=== PATIENT | female | born 1945 | race Caucasian/White ===

== ENCOUNTER 2021-12-05 01:45 | Inpatient (IN) ==
[2021-12-05] MEDS ORDERED: Melatonin 3 MG TABLET PO PRN (05:12)
[2021-12-05] MEDS ORDERED: Naloxone 0.4 MG/ML INJ IVP PRN (05:12)
[2021-12-05] MEDS: *HR* Labetalol 20 MG/4 ML SYRINGE IVP ONE ×2 (05:51→05:57)
[2021-12-05] MEDS ORDERED: Ipratropium/Albuterol Neb 3 ML ONE (07:20)
[2021-12-05] MEDS: Budesonide/Formoterol 160/4.5 1 PUFF INH IH SCH ×2 (07:34→19:51)
[2021-12-05] MEDS: hydroCHLOROthiazide 25 MG TABLET PO SCH (08:00)
[2021-12-05] MEDS ORDERED: Ipratropium/Albuterol Neb 3 ML IH SCH (10:00)
[2021-12-05] MEDS: Ipratropium/Albuterol Neb 3 ML IH SCH ×6 (11:23→22:49)
[2021-12-05] MEDS: MethylPREDNISolone 40 MG/ML VIAL IVP SCH ×2 (12:38→20:39)
[2021-12-05] MEDS ORDERED: *HR* Labetalol 20 MG/4 ML SYRINGE IVP PRN (16:55)
[2021-12-05] MEDS: *HR* Heparin 5,000 UNIT/ML VIAL SQ SCH (17:47)
[2021-12-05] MEDS: ALPRAZolam 0.5 MG TABLET PO PRN (20:32)
[2021-12-05] MEDS ORDERED: *HR* LORazepam 2 MG/ML VIAL IVP ONE (22:28)
[2021-12-06 00:44] LABS: ABG Base Excess 18 mEq/L (-2 to 3); ABG HCO3 48 mEq/L (21-27); ABG Oxygen Saturation 97 % (95-98); ABG PCO2 88 mmHg (35-45); ABG PH 7.35 pH Units (7.32-7.45); ABG PO2 108 mmHg (85-104); ABG TCO2 > 50 mEq/L (20-26)
[2021-12-06] MEDS ORDERED: Haloperidol Lactate 5 MG/ML VIAL IVP PRN ×2 (02:09→13:33)
[2021-12-06] MEDS: Ipratropium/Albuterol Neb 3 ML IH SCH ×3 (03:40→10:34)
[2021-12-06] MEDS: MethylPREDNISolone 40 MG/ML VIAL IVP SCH ×3 (04:03→21:26)
[2021-12-06 05:26] LABS: Hematocrit 34.2 % (35.3-44.9); Hemoglobin 11.1 g/dL (11.5-15.4); Mean Corpuscular HGB Conc 32.5 g/dL (31.6-35.5); Mean Corpuscular Hemoglobin 30.8 pg (28.0-33.3); Mean Platelet Volume 10.7 fL (9.4-12.4); Platelet Count 302 K/mcL (140-400); Red Cell Distribution Width 12.5 % (11.5-14.5)
[2021-12-06 05:49] LABS: BUN/Creatinine Ratio 30 (6-26); Blood Urea Nitrogen 23 mg/dL (8-23); Calcium 9.1 mg/dL (8.6-10.3); Carbon Dioxide 44 mEq/L (23-29); Chloride 86 mEq/L (98-107); Glucose 227 mg/dL (70-105); Magnesium 1.6 mg/dL (1.6-2.6); Osmolality,Calculated 293 (280-300); Potassium 3.4 mEq/L (3.5-5.1); Sodium 136 mEq/L (136-145); eGFR For African Americans > 60 (> 60); eGFR For Non-African Americans > 60 (> 60)
[2021-12-06] MEDS: Budesonide/Formoterol 160/4.5 1 PUFF INH IH SCH ×2 (07:17→19:46)
[2021-12-06] MEDS: *HR* Heparin 5,000 UNIT/ML VIAL SQ SCH ×2 (08:39→18:31)
[2021-12-06] MEDS: hydroCHLOROthiazide 25 MG TABLET PO SCH (08:56)
[2021-12-06] MEDS: ALPRAZolam 0.5 MG TABLET PO PRN (08:56)
[2021-12-06 14:42] LABS: ABG Base Excess 17 mEq/L (-2 to 3); ABG HCO3 45 mEq/L (21-27); ABG Oxygen Saturation 94 % (95-98); ABG PCO2 67 mmHg (35-45); ABG PH 7.44 pH Units (7.32-7.45); ABG PO2 74 mmHg (85-104); ABG TCO2 47 mEq/L (20-26)
[2021-12-06] MEDS ORDERED: Acetaminophen 325 MG TABLET PO PRN (14:45)
[2021-12-06] MEDS ORDERED: Ipratropium/Albuterol Neb 3 ML IH PRN (15:37)
[2021-12-07 01:39] LABS: Hematocrit 33.3 % (35.3-44.9); Hemoglobin 10.6 g/dL (11.5-15.4); Mean Corpuscular HGB Conc 31.8 g/dL (31.6-35.5); Mean Corpuscular Hemoglobin 30.4 pg (28.0-33.3); Mean Corpuscular Volume 95.4 fL (83.0-100.0); Mean Platelet Volume 10.3 fL (9.4-12.4); Platelet Count 299 K/mcL (140-400); Red Blood Count 3.49 M/mcL (3.82-4.97); Red Cell Distribution Width 12.7 % (11.5-14.5)
[2021-12-07 01:56] LABS: BUN/Creatinine Ratio 38 (6-26); Blood Urea Nitrogen 28 mg/dL (8-23); Calcium 8.7 mg/dL (8.6-10.3); Carbon Dioxide 44 mEq/L (23-29); Chloride 89 mEq/L (98-107); Glucose 230 mg/dL (70-105); Magnesium 1.7 mg/dL (1.6-2.6); Osmolality,Calculated 297 (280-300); Potassium 3.9 mEq/L (3.5-5.1); Sodium 137 mEq/L (136-145); eGFR For African Americans > 60 (> 60); eGFR For Non-African Americans > 60 (> 60)
[2021-12-07] MEDS: MethylPREDNISolone 40 MG/ML VIAL IVP SCH ×2 (03:42→13:20)
[2021-12-07] MEDS: *HR* Heparin 5,000 UNIT/ML VIAL SQ SCH (06:06)
[2021-12-07] MEDS ORDERED: lisinopriL 5 MG TABLET PO SCH (09:00)
[2021-12-07 10:31] VITALS: TEMP 97.9
[2021-12-07] MEDS: Budesonide/Formoterol 160/4.5 1 PUFF INH IH SCH ×2 (10:58→11:37)
[2021-12-07 16:29] VITALS: BP 150/79; PULSE 100; O2SAT 96
== END 2021-12-07 16:59 | disposition home or self-care (01) | DRG 189 ==
LOC: 2NENU
PROVIDERS: ADMIT Internal Medicine; ATTEND Internal Medicine

== ENCOUNTER 2021-12-23 14:27 | Inpatient (IN) ==
[2021-12-23] MEDS ORDERED: Isovue-370 500 ML BOTTLE IVP ONE (14:54)
[2021-12-23] MEDS ORDERED: methylPREDNISolone 125 MG/2 ML VIAL IVP ONE (15:36)
[2021-12-23] MEDS ORDERED: Azithromycin 500 MG in 0.9 % Sodium Chloride 250 ML IVPB ONE (15:36)
[2021-12-23 15:37] LABS: VBG HCO3 50 mEq/L (21-27); VBG PCO2 107 mmHg (41-51); VBG PH 7.28 pH Units (7.32-7.42); VBG PO2 53 mmHg (25-50)
[2021-12-23] MEDS ORDERED: Ipratropium/Albuterol Neb 3 ML IH ONE ×2 (15:45→17:01)
[2021-12-23] MEDS ORDERED: *HR* LORazepam 2 MG/ML VIAL IVP ONE (16:00)
[2021-12-23 16:01] LABS: BUN/Creatinine Ratio 28 (6-26); Blood Urea Nitrogen 21 mg/dL (8-23); Calcium 9.1 mg/dL (8.6-10.3); Carbon Dioxide > 45 mEq/L (23-29); Chloride 88 mEq/L (98-107); Glucose 290 mg/dL (70-105); Magnesium 1.7 mg/dL (1.6-2.6); Osmolality,Calculated 306 (280-300); Potassium 3.7 mEq/L (3.5-5.1); Sodium 141 mEq/L (136-145); Troponin I < 0.03 ng/mL (< 0.04); eGFR For African Americans > 60 (> 60); eGFR For Non-African Americans > 60 (> 60)
[2021-12-23 17:36] LABS: Basophils % 0.3 %; Eosinophils # 0.1 K/mcL (0.0-0.6); Eosinophils % 1.8 %; Hemoglobin 10.5 g/dL (11.5-15.4); Immature Granulocytes % 0.4 % (0-4); Mean Corpuscular Hemoglobin 30.8 pg (28.0-33.3); Mean Corpuscular Volume 102.6 fL (83.0-100.0); Mean Platelet Volume 10.2 fL (9.4-12.4); Monocytes # 0.7 K/mcL (0.0-1.3); Monocytes % 9.2 %; Platelet Count 242 K/mcL (140-400); Red Blood Count 3.41 M/mcL (3.82-4.97); Red Cell Distribution Width 12.9 % (11.5-14.5); Segmented Neutrophils % 75.3 %; White Blood Count 7.9 K/mcL (4.3-11.1)
[2021-12-23 17:41] LABS: VBG HCO3 44 mEq/L (21-27); VBG PCO2 75 mmHg (41-51); VBG PH 7.38 pH Units (7.32-7.42); VBG PO2 175 mmHg (25-50)
[2021-12-23] MEDS ORDERED: Naloxone 0.4 MG/ML INJ IVP PRN (18:41)
[2021-12-23] MEDS ORDERED: Melatonin 3 MG TABLET PO PRN (18:41)
[2021-12-23] MEDS ORDERED: ALPRAZolam 0.5 MG TABLET PO PRN (18:49)
[2021-12-23] MEDS ORDERED: Perflutren Lipid Microsphere 1.3 ML in 0.9 % Sodium Chloride 8.7 ML IVP PRN (19:04)
[2021-12-23] MEDS: Ipratropium/Albuterol Neb 3 ML IH SCH (20:49)
[2021-12-23] MEDS ORDERED: Budesonide/Formoterol 160/4.5 1 PUFF INH IH SCH (22:00)
[2021-12-24] MEDS: Ipratropium/Albuterol Neb 3 ML IH SCH ×4 (04:25→20:28)
[2021-12-24] MEDS: *HR* Heparin 5,000 UNIT/ML VIAL SQ SCH ×2 (05:48→17:07)
[2021-12-24 06:32] LABS: Basophils % 0.1 %; Hemoglobin 10.3 g/dL (11.5-15.4); Immature Granulocytes % 0.7 % (0-4); Mean Corpuscular HGB Conc 32.2 g/dL (31.6-35.5); Mean Corpuscular Hemoglobin 31.5 pg (28.0-33.3); Mean Corpuscular Volume 97.9 fL (83.0-100.0); Mean Platelet Volume 10.1 fL (9.4-12.4); Monocytes # 0.5 K/mcL (0.0-1.3); Monocytes % 6.1 %; Neutrophils # 6.1 K/mcL (1.6-8.9); Platelet Count 266 K/mcL (140-400); Red Blood Count 3.27 M/mcL (3.82-4.97); Red Cell Distribution Width 12.9 % (11.5-14.5); Segmented Neutrophils % 80.1 %; White Blood Count 7.6 K/mcL (4.3-11.1)
[2021-12-24 07:05] LABS: Alanine Aminotransferase 13 Units/L (7-52); Albumin 3.7 g/dL (3.5-5.7); Albumin/Globulin Ratio 1.6 (1.1-2.2); Alkaline Phosphatase 64 Units/L (34-104); Aspartate Amino Transferase 11 Units/L (13-39); BUN/Creatinine Ratio 40 (6-26); Bilirubin,Total 0.5 mg/dL (0.3-1.0); Blood Urea Nitrogen 27 mg/dL (8-23); Calcium 9.1 mg/dL (8.6-10.3); Carbon Dioxide 42 mEq/L (23-29); Chloride 91 mEq/L (98-107); Globulin 2.3 g/dL (2.4-3.5); Glucose 218 mg/dL (70-105); Magnesium 1.7 mg/dL (1.6-2.6); Osmolality,Calculated 302 (280-300); Phosphorous 2.5 mg/dL (2.7-4.5); Potassium 3.8 mEq/L (3.5-5.1); Sodium 140 mEq/L (136-145); Troponin I < 0.03 ng/mL (< 0.04); eGFR For African Americans > 60 (> 60); eGFR For Non-African Americans > 60 (> 60)
[2021-12-24] MEDS ORDERED: Albuterol 2.5 MG/3 ML NEBULIZER IH PRN (07:49)
[2021-12-24] MEDS ORDERED: MethylPREDNISolone 40 MG/ML VIAL IVP SCH (08:00)
[2021-12-24] MEDS: Budesonide/Formoterol 160/4.5 1 PUFF INH IH SCH ×2 (08:52→20:29)
[2021-12-24] MEDS: lisinopriL 5 MG TABLET PO SCH (10:06)
[2021-12-24] MEDS: ALPRAZolam 0.5 MG TABLET PO PRN ×2 (10:06→22:03)
[2021-12-24] MEDS: Cholecalciferol (D-3) 1,000 UNIT (25MCG) TABLET PO SCH (10:06)
[2021-12-24] MEDS: Fluticasone Propionate Nasal 50 MCG/SPRAY BOTTLE NS SCH (10:08)
[2021-12-24] MEDS: hydroCHLOROthiazide 25 MG TABLET PO SCH (10:08)
[2021-12-24] MEDS ORDERED: *HR* Dextrose 50 % in Water (Syg) 50 ML SYRINGE IVP PRN (12:57)
[2021-12-24] MEDS ORDERED: Dextrose 4 GM Chewable Tablets PO PRN ×2 (12:57)
[2021-12-24] MEDS ORDERED: D5% in Water 1,000 ML IVC PRN (12:57)
[2021-12-24] MEDS: Insulin LISPRO 300 UNITS/3 ML VIAL SUBQ SCH (16:57)
[2021-12-24] MEDS: MethylPREDNISolone 40 MG/ML VIAL IVP SCH (22:03)
[2021-12-25] MEDS: Ipratropium/Albuterol Neb 3 ML IH SCH ×4 (04:27→19:53)
[2021-12-25 05:13] LABS: Hematocrit 33.2 % (35.3-44.9); Hemoglobin 10.6 g/dL (11.5-15.4); Mean Corpuscular HGB Conc 31.9 g/dL (31.6-35.5); Mean Corpuscular Hemoglobin 31.8 pg (28.0-33.3); Mean Corpuscular Volume 99.7 fL (83.0-100.0); Mean Platelet Volume 10.3 fL (9.4-12.4); Platelet Count 283 K/mcL (140-400); Red Blood Count 3.33 M/mcL (3.82-4.97); Red Cell Distribution Width 12.9 % (11.5-14.5); White Blood Count 7.2 K/mcL (4.3-11.1)
[2021-12-25 05:35] LABS: BUN/Creatinine Ratio 42 (6-26); Blood Urea Nitrogen 35 mg/dL (8-23); Calcium 9.1 mg/dL (8.6-10.3); Carbon Dioxide 42 mEq/L (23-29); Chloride 91 mEq/L (98-107); Glucose 299 mg/dL (70-105); Osmolality,Calculated 305 (280-300); Potassium 4.3 mEq/L (3.5-5.1); Sodium 138 mEq/L (136-145); eGFR For African Americans > 60 (> 60); eGFR For Non-African Americans > 60 (> 60)
[2021-12-25] MEDS: Insulin LISPRO 300 UNITS/3 ML VIAL SUBQ SCH ×3 (08:11→17:47)
[2021-12-25] MEDS: hydroCHLOROthiazide 25 MG TABLET PO SCH (08:13)
[2021-12-25] MEDS: *HR* Heparin 5,000 UNIT/ML VIAL SQ SCH ×2 (08:14→17:51)
[2021-12-25] MEDS: Fluticasone Propionate Nasal 50 MCG/SPRAY BOTTLE NS SCH (08:14)
[2021-12-25] MEDS: MethylPREDNISolone 40 MG/ML VIAL IVP SCH ×2 (08:15→22:19)
[2021-12-25] MEDS: Cholecalciferol (D-3) 1,000 UNIT (25MCG) TABLET PO SCH (08:15)
[2021-12-25] MEDS: lisinopriL 5 MG TABLET PO SCH (08:15)
[2021-12-25] MEDS: Budesonide/Formoterol 160/4.5 1 PUFF INH IH SCH ×2 (09:57→19:53)
[2021-12-25] MEDS ORDERED: DilTIAZem CD (24hr) 120 MG CAP.ER.24H PO SCH (13:30)
[2021-12-25] MEDS: ALPRAZolam 0.5 MG TABLET PO PRN (22:16)
[2021-12-25] MEDS: Insulin DETEMIR 100 UNIT/ML X5UNITS SUBQ SCH (22:17)
[2021-12-26 03:19] LABS: Estimated Average Glucose 194 mg/dl; Hemoglobin A1C 8.4 %
[2021-12-26] MEDS: Ipratropium/Albuterol Neb 3 ML IH SCH ×4 (04:08→20:54)
[2021-12-26] MEDS: *HR* Heparin 5,000 UNIT/ML VIAL SQ SCH ×2 (06:43→16:26)
[2021-12-26] MEDS: Budesonide/Formoterol 160/4.5 1 PUFF INH IH SCH ×2 (08:07→20:54)
[2021-12-26] MEDS: Cholecalciferol (D-3) 1,000 UNIT (25MCG) TABLET PO SCH (09:14)
[2021-12-26] MEDS: Fluticasone Propionate Nasal 50 MCG/SPRAY BOTTLE NS SCH (09:14)
[2021-12-26] MEDS: DilTIAZem CD (24hr) 180 MG CAP.ER.24H PO SCH (09:15)
[2021-12-26] MEDS: hydroCHLOROthiazide 25 MG TABLET PO SCH (09:15)
[2021-12-26] MEDS: ALPRAZolam 0.5 MG TABLET PO PRN ×2 (09:15→20:32)
[2021-12-26] MEDS: lisinopriL 5 MG TABLET PO SCH (09:16)
[2021-12-26] MEDS: Insulin LISPRO 300 UNITS/3 ML VIAL SUBQ SCH ×3 (09:16→16:26)
[2021-12-26] MEDS: MethylPREDNISolone 40 MG/ML VIAL IVP SCH (09:16)
[2021-12-26] MEDS: Insulin DETEMIR 100 UNIT/ML X5UNITS SUBQ SCH (20:32)
[2021-12-27] MEDS: Ipratropium/Albuterol Neb 3 ML IH SCH ×2 (04:48→11:00)
[2021-12-27] MEDS: *HR* Heparin 5,000 UNIT/ML VIAL SQ SCH (06:48)
[2021-12-27] MEDS: DilTIAZem CD (24hr) 180 MG CAP.ER.24H PO SCH (08:35)
[2021-12-27] MEDS: hydroCHLOROthiazide 25 MG TABLET PO SCH (08:36)
[2021-12-27] MEDS: ALPRAZolam 0.5 MG TABLET PO PRN (08:36)
[2021-12-27] MEDS: Fluticasone Propionate Nasal 50 MCG/SPRAY BOTTLE NS SCH (08:36)
[2021-12-27] MEDS: lisinopriL 5 MG TABLET PO SCH (08:36)
[2021-12-27] MEDS: Insulin LISPRO 300 UNITS/3 ML VIAL SUBQ SCH ×2 (08:37→12:41)
[2021-12-27] MEDS: Cholecalciferol (D-3) 1,000 UNIT (25MCG) TABLET PO SCH (08:37)
[2021-12-27] MEDS ORDERED: predniSONE 20 MG TABLET PO SCH (09:00)
[2021-12-27] MEDS: Budesonide/Formoterol 160/4.5 1 PUFF INH IH SCH (11:00)
[2021-12-27 11:43] VITALS: BP 110/56; PULSE 89; TEMP 97.6; O2SAT 95
== END 2021-12-27 16:20 | disposition home or self-care (01) | DRG 189 ==
LOC: EMEROOARM 14:27 → 2NENU 14:27
PROVIDERS: ADMIT Internal Medicine; ATTEND Internal Medicine

== ENCOUNTER 2022-01-18 17:35 | Inpatient (IN) ==
[2022-01-18] MEDS ORDERED: Acetaminophen 325 MG TABLET PO PRN (19:42)
[2022-01-18] MEDS ORDERED: Naloxone 0.4 MG/ML INJ IVP PRN (19:42)
[2022-01-18] MEDS ORDERED: Ondansetron ODT 4 MG TAB.RAPDIS SL PRN (19:42)
[2022-01-18] MEDS ORDERED: Ipratropium/Albuterol Neb 3 ML IH PRN (19:47)
[2022-01-18] MEDS ORDERED: D5% in Water 1,000 ML IVC PRN (20:02)
[2022-01-18] MEDS ORDERED: Dextrose 4 GM Chewable Tablets PO PRN ×2 (20:02)
[2022-01-18] MEDS ORDERED: *HR* Dextrose 50 % in Water (Syg) 50 ML SYRINGE IVP PRN (20:02)
[2022-01-18] MEDS: Insulin LISPRO 300 UNITS/3 ML VIAL SUBQ SCH (20:30)
[2022-01-18] MEDS: Budesonide/Formoterol 160/4.5 1 PUFF INH IH SCH (21:00)
[2022-01-18 21:17] LABS: Hematocrit 30.6 % (35.3-44.9); Hemoglobin 9.6 g/dL (11.5-15.4)
[2022-01-18 21:25] LABS: VBG HCO3 45 mEq/L (21-27); VBG PCO2 79 mmHg (41-51); VBG PH 7.37 pH Units (7.32-7.42); VBG PO2 137 mmHg (25-50)
[2022-01-18 23:03] LABS: Estimated Average Glucose 197 mg/dl; Hemoglobin A1C 8.5 %
[2022-01-18] MEDS ORDERED: ALPRAZolam 0.5 MG TABLET PO PRN (23:16)
[2022-01-19] MEDS: Melatonin 3 MG TABLET PO PRN ×2 (00:27→22:15)
[2022-01-19] MEDS ORDERED: *HR* LORazepam 2 MG/ML VIAL IVP ONE (00:43)
[2022-01-19] MEDS ORDERED: Albumin 25% 25gram/100mL 25 GM/100 ML IV.SOLN ONE (00:59)
[2022-01-19] MEDS: Chlorhexidine Rinse 15 ML MOUTHWASH MM SCH ×3 (01:01→22:14)
[2022-01-19] MEDS: Albumin 25% 25gram/100mL 25 GM/100 ML IV.SOLN IVPB SCH (01:02)
[2022-01-19] MEDS: Furosemide 20 MG/2 ML VIAL IVP SCH ×3 (03:08→22:14)
[2022-01-19 04:13] LABS: Basophils % 0.1 %; Eosinophils # 0.1 K/mcL (0.0-0.6); Eosinophils % 0.9 %; Hematocrit 30.8 % (35.3-44.9); Hemoglobin 9.5 g/dL (11.5-15.4); Immature Granulocytes % 0.3 % (0-4); Lymphocytes # 1.4 K/mcL (0.6-4.6); Lymphocytes % 20.6 %; Mean Corpuscular HGB Conc 30.8 g/dL (31.6-35.5); Mean Corpuscular Hemoglobin 30.7 pg (28.0-33.3); Mean Corpuscular Volume 99.7 fL (83.0-100.0); Mean Platelet Volume 10.4 fL (9.4-12.4); Monocytes % 14.9 %; Neutrophils # 4.3 K/mcL (1.6-8.9); Platelet Count 278 K/mcL (140-400); Red Blood Count 3.09 M/mcL (3.82-4.97); Segmented Neutrophils % 63.2 %; White Blood Count 6.9 K/mcL (4.3-11.1)
[2022-01-19 04:16] LABS: Prothrombin Time 11.3 Seconds (9.4-12.1)
[2022-01-19 04:19] LABS: Activated Partial Thrombo Time 30.6 Seconds (26.0-36.0)
[2022-01-19 04:26] LABS: BUN/Creatinine Ratio 36 (6-26); Blood Urea Nitrogen 27 mg/dL (8-23); Calcium 8.9 mg/dL (8.6-10.3); Carbon Dioxide > 45 mEq/L (23-29); Chloride 88 mEq/L (98-107); Chol/HDL Ratio 2.5 (0-4.9); Cholesterol 149 mg/dL (< 200); Glucose 124 mg/dL (70-105); HDL Cholesterol 59 mg/dL (40-59); LDL Cholesterol,Calculated 64 mg/dL (< 100); Magnesium 1.8 mg/dL (1.6-2.6); Osmolality,Calculated 301 (280-300); Phosphorous 3.7 mg/dL (2.7-4.5); Potassium 3.4 mEq/L (3.5-5.1); Sodium 142 mEq/L (136-145); Triglycerides 128 mg/dL (< 150); eGFR For African Americans > 60 (> 60); eGFR For Non-African Americans > 60 (> 60)
[2022-01-19 07:13] LABS: Adenovirus Not Detected (Not Detect); Bordetella Pertussis Not Detected (Not Detect); Chlamydophila pneumoniae Not Detected (Not Detect); Coronavirus 229E Not Detected (Not Detect); Coronavirus HKU1 Not Detected (Not Detect); Coronavirus NL63 Not Detected (Not Detect); Coronavirus OC43 Not Detected (Not Detect); Human Metapneumovirus Not Detected (Not Detect); Human Rhinovirus/Enterovirus Not Detected (Not Detect); Influenza A Subtype 2009 H1 Not Detected (Not Detect); Influenza B Not Detected (Not Detect); Mycoplasma pneumoniae Not Detected (Not Detect); Parainfluenza Virus 1 Not Detected (Not Detect); Parainfluenza Virus 2 Not Detected (Not Detect); Parainfluenza Virus 3 Not Detected (Not Detect); Parainfluenza Virus 4 Not Detected (Not Detect); Respiratory Syncytial Virus Not Detected (Not Detect); SARS-CoV-2 Not Detected (Not Detect)
[2022-01-19] MEDS: Budesonide/Formoterol 160/4.5 1 PUFF INH IH SCH ×2 (07:43→20:20)
[2022-01-19] MEDS: Insulin LISPRO 300 UNITS/3 ML VIAL SUBQ SCH ×3 (09:46→18:21)
[2022-01-19] MEDS: Metoprolol XL (24 HR) Succ 25 MG TAB.ER.24H PO SCH (15:06)
[2022-01-19] MEDS: QUEtiapine Fumarate 25 MG TABLET PO SCH (22:15)
[2022-01-20] MEDS: Albumin 25% 25gram/100mL 25 GM/100 ML IV.SOLN IVPB SCH (05:43)
[2022-01-20] MEDS: Furosemide 20 MG/2 ML VIAL IVP SCH (07:52)
[2022-01-20] MEDS: Insulin LISPRO 300 UNITS/3 ML VIAL SUBQ SCH ×3 (07:55→16:40)
[2022-01-20] MEDS: Loratadine 10 MG TABLET PO SCH (08:02)
[2022-01-20] MEDS: predniSONE 5 MG TABLET PO SCH (08:02)
[2022-01-20] MEDS: lisinopriL 5 MG TABLET PO SCH (08:04)
[2022-01-20] MEDS: Metoprolol XL (24 HR) Succ 25 MG TAB.ER.24H PO SCH (08:04)
[2022-01-20] MEDS: Chlorhexidine Rinse 15 ML MOUTHWASH MM SCH ×2 (09:52→20:03)
[2022-01-20 09:55] LABS: BUN/Creatinine Ratio 29 (6-26); Blood Urea Nitrogen 22 mg/dL (8-23); Calcium 8.9 mg/dL (8.6-10.3); Carbon Dioxide > 45 mEq/L (23-29); Chloride 83 mEq/L (98-107); Glucose 178 mg/dL (70-105); Osmolality,Calculated 300 (280-300); Potassium 3.4 mEq/L (3.5-5.1); Sodium 141 mEq/L (136-145); eGFR For African Americans > 60 (> 60); eGFR For Non-African Americans > 60 (> 60)
[2022-01-20] MEDS: Budesonide/Formoterol 160/4.5 1 PUFF INH IH SCH ×2 (10:43→20:42)
[2022-01-20] MEDS ORDERED: Potassium Chloride Elixir 20 MEQ/15 ML UDC PO ONE (12:28)
[2022-01-20] MEDS: *HR* Heparin 5,000 UNIT/ML VIAL SQ SCH ×2 (16:43→20:06)
[2022-01-20] MEDS: Furosemide 20 MG TABLET PO SCH (16:43)
[2022-01-20] MEDS: Melatonin 3 MG TABLET PO PRN (20:03)
[2022-01-20] MEDS: QUEtiapine Fumarate 25 MG TABLET PO SCH (20:03)
[2022-01-21] MEDS: *HR* Heparin 5,000 UNIT/ML VIAL SQ SCH ×2 (05:16→13:17)
[2022-01-21] MEDS: Insulin LISPRO 300 UNITS/3 ML VIAL SUBQ SCH ×2 (07:32→11:32)
[2022-01-21] MEDS: Chlorhexidine Rinse 15 ML MOUTHWASH MM SCH (07:33)
[2022-01-21] MEDS: Loratadine 10 MG TABLET PO SCH (07:34)
[2022-01-21] MEDS: Metoprolol XL (24 HR) Succ 25 MG TAB.ER.24H PO SCH (07:34)
[2022-01-21] MEDS: Furosemide 20 MG TABLET PO SCH (07:34)
[2022-01-21] MEDS: lisinopriL 5 MG TABLET PO SCH (07:34)
[2022-01-21] MEDS: predniSONE 5 MG TABLET PO SCH (07:34)
[2022-01-21] MEDS: Budesonide/Formoterol 160/4.5 1 PUFF INH IH SCH (07:57)
[2022-01-21 08:17] LABS: BUN/Creatinine Ratio 34 (6-26); Blood Urea Nitrogen 24 mg/dL (8-23); Calcium 9.2 mg/dL (8.6-10.3); Carbon Dioxide > 45 mEq/L (23-29); Chloride 88 mEq/L (98-107); Glucose 194 mg/dL (70-105); Osmolality,Calculated 299 (280-300); Potassium 3.7 mEq/L (3.5-5.1); Sodium 140 mEq/L (136-145); eGFR For African Americans > 60 (> 60); eGFR For Non-African Americans > 60 (> 60)
[2022-01-21 09:50] VITALS: BP 126/68; PULSE 100; TEMP 98
[2022-01-21 10:05] VITALS: O2SAT 94
== END 2022-01-21 13:49 | disposition home health service (06) | DRG 190 ==
LOC: 2NNU → SUATTDRO 19:20 → 2NENU 01-19 13:08
PROVIDERS: ADMIT Internal Medicine; ATTEND Internal Medicine